=== PATIENT | female | born 1955 | race Caucasian/White ===

== ENCOUNTER 2016-06-19 14:25 | Emergency (ER) | payer OTHER ==
[2016-06-19 15:11] VITALS: BP 154/82
[2016-06-19] MEDS ORDERED: IBUPROFEN 400 MG TABLET PO ONE (15:14)
[2016-06-19] MEDS ORDERED: ACETAMINOPHEN 500 MG TABLET PO ONE (15:14)
--- OUTSIDE RECORDS SUMMARY | 2016-06-19 15:27 | XMS REPORT | Continuity of Care Document ---
:1955 Author Organization [facility] ([facility]) [place] [address] Phone [phone] Care Team Providers Name Role Phone Provider, No-Primary Care Primary Care Provider Unavailable Source Comments This disclosure is being made pursuant to the Care Everywhere program, applicable federal and state laws, and may not contain all informaitonavailable regarding this patient.[facility] ([facility]) Active Allergies and Adverse Reactions Not on File Current Medications Not on file Active Problems Not on file Social History Tobacco Use Types Packs/Day Years Used Date Never Assessed Plan of Care Health Maintenance Due Date Last Done Comments HCV Screening 1955 Hepatitis B Vaccine (1 of 3 - Primary Series) 1955 Tdap Vaccine 10/03/1967 Lipid Disorder Screening 1974 MMR Vaccine 1974 Td Vaccine 1974 Cervical Cancer Screening 1986 Mammogram 1996 Colonoscopy 2006 Influenza Vaccine: Seasonal (#1) 09/29/2015 Results from Last 3 Months Not on file
--- NOTE | 2016-06-19 15:56 | ERNOTE ---
<Sammie Mcginnis - Last Filed: 06/19/16 15:47> Upper Extremity HPI - Narrative Date of Service: 06/19/16 - General Extremities Pain Location: hand: left Time Seen by Provider: 06/19/16 15:12 Source: patient Exam Limitations: no limitations - Immun/Allergies/Home Medications Immunizations: IMMUNIZATION HX Immunizations Up to Date Yes History of Influenza Vaccine No Hx Pneumococcal Vaccination No Allergies/Adverse Reactions: Allergies Allergy/AdvReac Type Severity Reaction Status Date / Time No Known Allergies Allergy Unverified 06/19/16 15:11 Home Medications: HOME MEDICATIONS oxyCODONE HCL/ACETAMINOPHEN [Percocet 5 MG/325 MG] 1 tab PO Q6H #8 tablet [Last Taken Unknown] - Pain Score Pain Score #1 Pain Score: 3 - History of Present Illness Narrative: Patient is a 60 year old female patient who presents to the ED with complaints of pain and injury to left hand. 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 Complains of pain to area between left thumb and left index finger. Also complains of pain to left palm area. Good sensation and movement of left fingers. Strong left radial pulse Date (Duration): 06/19/16 Time (Timing): 13:00 Occurred: just prior to arrival Location of Incident: work Severity: mild Method of Injury: Reports: direct blow Reason for Fall: Reports: other - did not fall Loss of Consciousness: Reports: other - denies LOC/AMS Modifying Factors - (Improves): Reports: immobilization Modifying Factors - (Worsens): Reports: movement Associated Symptoms: Denies: tingling, weakness, numbness distally, loss of feeling, loss of power (rt arm) Other Injuries: Reports: none Review of Systems - Review of Systems Constitutional: Present: no symptoms reported EYE: Present: no symptoms reported ENT: Present: no symptoms reported Respiratory: Present: no symptoms reported Cardiology: Present: no symptoms reported Gastrointestinal/Abdominal: Present: no symptoms reported Genitourinary: Present: no symptoms reported Musculoskeletal: Present: other - right hand pain Neurological: Present: no symptoms reported Endocrine: Present: no symptoms reported Hematologic/Lymphatic: Absent: easy bruising, easy bleeding Psych: Present: no symptoms reported - Patient's Past Medical History Patient History - Medical: No pertinent hx Patient History - Cardiac/Respiratory: No pertinent hx Patient History - Cancer: No Hx of Cancer Patient History - Surgical Procedures: Appendectomy, Cholecystectomy, Patient History - Other: None LMP (females 10-50): Menopausal - Social History Living Situations: home Psych History: No pertinent hx Smoking Status: Never smoker - Immunizations Immunizations Up to Date: Yes Hx Pneumococcal Vaccination: No History of Influenza Vaccine: No Physical Exam - Physical Exam General Appearance: Present: wd/wn, alert, no apparent distress Eye Exam: Normal inspection: bilateral, PERRL: bilateral Ears, Nose, Throat: Present: normal ENT inspection Neck: Present: normal inspection, nontender Respiratory: Present: no respiratory distress, normal breath sounds, no accessory muscle use, chest nontender, lungs clear Cardiovascular/Chest: Present: regular rate, rhythm, no murmur, normal peripheral pulses Gastrointestinal/Abdominal: Present: normal bowel sounds, nontender, nondistended, soft Rectal Exam: Present: deferred Back Exam: Present: normal inspection, normal range of motion, no CVA tenderness , no vertebral tenderness Extremity Exam: Present: normal inspection, normal range of motion, no edema Neurological Exam: Present: alert, oriented, normal mood/affect, no motor/ sensory deficits Skin Exam: Present: normal color, warm/dry Lymphatic Exam: Present: no adenopathy ED Progress - Vital Signs Patient's Vital Signs:: I have reviewed the patient's vital signs. Vital Signs: Vital Signs 06/19/16 15:08 Temperature 36.4 C L Pulse Rate 74 Respiratory 16 Rate Blood Pressure 154/82 O2 Sat by Pulse 100 Oximetry - Progress/Reassessment Chief Complaint: Hand Injury/Pain Departure Clinical Impression: Contusion, hand Qualifiers: Encounter type: initial encounter Laterality: left Qualified Code(s): S60.222A - Contusion of left hand, initial encounter - Departure Disposition: Home self-care Condition: Stable Instructions: Contusion, [id number] Referrals: Patti Bhatti MD [Primary Care Provider] - Prescriptions: oxyCODONE HCL/ACETAMINOPHEN [Percocet 5 MG/325 MG] 1 tab PO Q6H #8 tablet <Isra Ordonez - Last Filed: 06/19/16 17:18> Upper Extremity HPI - General Extremities Pain Location: hand: left - Pain after injury - Immun/Allergies/Home Medications Immunizations: IMMUNIZATION HX Immunizations Up to Date Yes History of Influenza Vaccine No Hx Pneumococcal Vaccination No Physical Exam - Physical Exam Extremity Exam: Present: other - There is mild tenderness and swelling on the L first interphalangeal web. No open wounds, good pulse, good senation, and capillary refill < 2sec. Patient with full ROM of the hand. Neurological Exam: Present: alert, oriented, normal mood/affect, no motor/ sensory deficits Skin Exam: Present: normal color, warm/dry ED Progress - Vital Signs Patient's Vital Signs:: I have reviewed the patient's vital signs. Vital Signs: Vital Signs 06/19/16 15:08 Temperature 36.4 C L Pulse Rate 74 Respiratory 16 Rate Blood Pressure 154/82 O2 Sat by Pulse 100 Oximetry - X-Ray X-Ray #1 X-Ray: hand X-ray Comments: No Fx seen on film - Progress/Reassessment Progress:: Improved - Transfer of Care Expected Disposition: Discharge Plan - Plan Plan: Follow with PCP
[2016-06-19] MEDS ORDERED: IBUPROFEN 400 MG TABLET ONE (16:21)
== END 2016-06-19 17:40 | disposition home or self-care (01) ==
LOC: ER 14:25
DX: S60.222A Contusion of left hand, initial encounter (principal); W22.8XXA Striking against or struck by other objects, initial encounter; Y93.01 Activity, walking, marching and hiking; Y92.89 Other specified places as the place of occurrence of the external cause; Y99.0 Civilian activity done for income or pay